=== PATIENT | female | born 1990 | race Caucasian/White ===

== ENCOUNTER 2017-06-08 18:00 | Emergency (ER) | payer OTHER ==
[~2017-06-08 18:00] MED LIST: Iopamidol 370 76% 100 ML VIAL ONE
[2017-06-08 18:31] LABS: #Basophils 0.1 thou/uL (0.0-0.2); #Eosinphils 0.2 thou/uL (0.0-0.7); #Lymphocytes 3.6 thou/uL (1.20-3.40); #Monocytes 0.6 thou/uL (0.11-0.59); #Neutrophils 2.9 thou/uL (1.40-6.50); %Basophils 1.5 % (0.0-1.0); %Lymphocytes 49.1 % (21.0-51.0); %Monocytes 7.4 % (0.0-10.0); %Neutrophils 38.9 % (42.0-75.0); Hemoglobin 13.5 g/dL (12.0-16.0); Mean Corpuscular HGB CONC 35.4 g/dL (32.0-36.0); Mean Corpuscular Hemoglobin 30.8 pg (27.0-31.0); Mean Platelet Volume 10.4 fL (7.4-10.4); Platelet Count 213 thou/uL (130-400); Red Blood Cell (RBC) Count 4.39 mill/uL (4.20-5.40); White Blood Cell (WBC) Count 7.4 thou/uL (4.8-10.8)
[2017-06-08 18:39] LABS: Bilirubin Negative (Negative); Blood, Urine Negative (Negative); Clarity Clear (Clear); Glucose, Urine (Dipstick) Negative (Negative); Leukocyte Negative (Negative); Nitrite Negative (Negative); Protein, Urine (Dipstick) Negative (Neg-Trace); Specific Gravity, Urine 1.015 (1.005-1.030); Urobilinogen 0.2 mg/dL (0.2-1.0); pH, Urine 7.5 (5.0-9.0)
[2017-06-08 18:40] LABS: Pregnancy Test - Urine (BHCG) Negative (Negative); Pregu Control Background? CLEAR/WHITE (CLR/WHITE); Pregu Control Bar Appear? YES (CONTROL BAR); Specific Gravity 1.015 (1.002-1.036)
[2017-06-08 18:49] LABS: ALT (SGPT) 19 U/L (8-55); AST (SGOT) 17 U/L (5-34); Albumin 4.1 g/dL (3.5-5.0); Alkaline Phosphatase 45 U/L (40-150); Anion Gap 14 mmol/L (10-20); BUN (Urea Nitrogen) 10 mg/dL (7.0-18.7); Bilirubin, Total 0.3 mg/dL (0.2-1.2); Calc. Creatinine Clearance 0 mL/min (70-130); Calcium 8.9 mg/dL (7.8-10.44); Carbon Dioxide 24 mmol/L (22-29); Chloride 106 mmol/L (98-107); Estimated GFR-MDRD 90; Globulin 2.4 g/dL (2.4-3.5); Glucose 100 mg/dL (70-105); Lipase 13 U/L (8-78); Potassium 3.6 mmol/L (3.5-5.1); Protein, Total 6.5 g/dL (6.0-8.3); Sodium 140 mmol/L (136-145)
[2017-06-08] MEDS ORDERED: Morphine 10 MG/ML VIAL ONE (19:07)
[2017-06-08] MEDS ORDERED: Ondansetron HCl/PF 4 MG/2 ML Vial ONE (19:07)
--- NOTE | 2017-06-08 19:52 | CT ---
CT ABDOMEN AND PELVIS WITH CONTRASTS: Date: 06/08/17 Multiple axial tomograms obtained through abdomen and pelvis with IV enhancement. HISTORY: Right lower quadrant abdominal pain. FINDINGS: Lung bases are clear. The liver, spleen, and pancreas are unremarkable. The adrenal glands and kidneys are unremarkable. Sm all bowel loops appear normal caliber. Appendix is identified and appears unremarkable. Stool and gas throughout the colon. Urinary bladder is distended and appears unremarkable. Kidneys unremarkable. There is an IUD in the endometrial cavity. Adnexa unremarkable. No adenopathy. IMPRESSION: No acute process identified. POS: [facility]
== END 2017-06-08 20:24 | disposition home or self-care (01) ==
LOC: SCSER 18:00
DX: R10.31 Right lower quadrant pain (principal); J45.909 Unspecified asthma, uncomplicated; F41.9 Anxiety disorder, unspecified
CPT/HCPCS: 74177; 80053; 81003; 81025; 83690; 85025; 96361; 96374; 96375; J2270; J2405

== ENCOUNTER 2018-11-25 06:58 | Outpatient (CLI) | payer OTHER ==
--- NOTE | 2018-11-25 08:35 | ULT ---
OB ULTRASOUND: INDICATIONS: Size and dates. FINDINGS: There is a single viable intrauterine . Gestational age by ultrasound is 18 weeks 6 days. BPD: 19 weeks 2 days. HC: 19 weeks 0 days. AC: 18 weeks 5 days. FL: 18 weeks 4 days. EFW: 253 g (44th percentile). HEART RATE: 144 PLACENTA: Posterior. PRESENTATION: Breech. AMNIOTIC FLUID: Adequate. CERVICAL LENGTH: 4.3 cm. Anatomy visualized included intracranial contents, four-chambered heart, stomach, kidneys, cord inser tion, bladder, spine, lips, nose, extremities, and three-vessel cord. No abnormality identified. IMPRESSION: An 38-twao-2-day gestational age by ultrasound. POS: [facility]
== END 2018-11-25 06:59 | disposition home or self-care (01) ==
LOC: SCSULT 06:58
PROVIDERS: ATTEND Family Medicine
DX: Z34.02 Encounter for supervision of normal first pregnancy, second trimester (principal); Z3A.18 18 weeks gestation of pregnancy
CPT/HCPCS: 76805

== ENCOUNTER 2019-04-16 10:04 | Inpatient (IN) | payer OTHER ==
[2019-04-16] MEDS ORDERED: Bicitra 30 ML UDCUP PO SCH (10:40)
[2019-04-16] MEDS ORDERED: hydrALAZINE 20 MG/ML VIAL SLOW IVP PRN ×2 (10:40→14:15)
[2019-04-16] MEDS ORDERED: CEFAZOLIN 2 GM in Premix Bag 1 BAG IVPB SCH (10:40)
[2019-04-16] MEDS ORDERED: Promethazine HCl 25 MG/ML VIAL IM PRN ×2 (10:40→16:20)
[2019-04-16] MEDS ORDERED: Ondansetron PF 4 MG/2 ML Vial IVP PRN ×3 (10:40→16:20)
[2019-04-16] MEDS: Lactated Ringer's 1,000 ML IV SCH ×3 (11:15→16:20)
[2019-04-16 11:19] VITALS: BMI 37.5
[2019-04-16 11:30] LABS: Hemoglobin 13.1 g/dL (12.0-16.0); Mean Corpuscular HGB CONC 35.1 g/dL (32.0-36.0); Mean Corpuscular Hemoglobin 30.5 pg (27.0-31.0); Mean Platelet Volume 10.5 fL (7.4-10.4); Platelet Count 141 thou/uL (130-400); RBC Distribution Width 12.2 % (11.5-14.5); Red Blood Cell (RBC) Count 4.29 mill/uL (4.20-5.40); White Blood Cell (WBC) Count 9.6 thou/uL (4.8-10.8)
[2019-04-16] MEDS ORDERED: MORPHINE 5 MG/10 ML PF VIAL ONE (11:41)
[2019-04-16] MEDS ORDERED: PHENYLEPHRINE-NS 100 MCG/ML 10 ML SYRINGE ONE (11:42)
[2019-04-16] MEDS ORDERED: ePHEDrine/0.9% NaCl/PF SYRINGE 50 mg/10 ml ONE (11:42)
[2019-04-16] MEDS ORDERED: Oxytocin 10 UNITS/ML VIAL ONE ×2 (11:42→12:41)
[2019-04-16] MEDS ORDERED: Dexamethasone 4 mg/ml Vial ONE (11:42)
[2019-04-16] MEDS ORDERED: Ondansetron PF 4 MG/2 ML Vial ONE (11:42)
[2019-04-16 12:07] LABS: HBSAg Index 0.39 S/CO (0-0.99); Hep B Surf Ag Non-Reactive S/CO (NonReactive)
[2019-04-16 12:18] LABS: Syphilis Antibody Nonreactive (Nonreactive); Syphilis Antibody Index 0.02 S/CO (<1.00 Non-Reactive)
[2019-04-16] MEDS ORDERED: Bicitra 30 ML UDCUP ONE (12:39)
--- NOTE | 2019-04-16 14:06 | OP ---
DATE OF PROCEDURE: 04/16/2019 PREOPERATIVE DIAGNOSIS: Term intrauterine with breech presentation. POSTOPERATIVE DIAGNOSIS: Term intrauterine with breech presentation, status post delivery. PROCEDURE PERFORMED: Primary low transverse section. PUMP ROOM OPERATOR: Jhonny York MD. ANESTHETIC: Spinal anesthetic. COMPLICATIONS: No complications. DESCRIPTION OF PROCEDURE: After adequate spinal anesthetic, the patient was placed in supine position, which was placed under her right flank. A Kulkarni catheter was inserted, and the abdomen was prepped and draped in usual sterile technique. A Pfannenstiel incision was made in the inferior aspect of the abdomen. Subcutaneous tissue opened with sharp dissection. Fascia opened with sharp dissection. Peritoneum opened with sharp and blunt dissection, and large Joaquim O retractor was placed. A bladder flap was incised inferiorly, and a low-transverse incision was made on the uterus. Membranes were ruptured. Clear fluid was encountered, and a viable female was delivered from the rob breech presentation without difficulty. breathed and cried spontaneously. Cord was clamped and cut after approximately 30 seconds. was handed to the care of the Neonatology Team. Cord blood was obtained. The placenta was delivered manually. Ring forceps were placed over the hysterotomy edges, and the hysterotomy was then closed in continuous fashion in 2 layers using 0 Monocryl suture. Hemostasis was adequate. There were no further bleeders. Joaquim O retractor was removed. Again, inspecting incision with no bleeding. The peritoneal edges were then closed in continuous fashion using 2-0 Vicryl suture, and the fascia was closed in continuous fashion using 0 Vicryl. Sponge and instrument counts were correct. Subcutaneous tissue was then closed in continuous running fashion with 2-0 plain, and the skin was closed in subcuticular fashion with 4-0 Monocryl. Sponge and instrument counts were again correct. There were no complications. QBL, 311 mL. Baby is a viable female infant, weight 7 pounds 4 ounces, Apgars 8 at one minute, 9 at five minutes, to go in level-1 nursery without complications. Job ID: [id number]
[2019-04-16] MEDS ORDERED: Acetaminophen 325 MG TAB PO PRN (14:15)
[2019-04-16] MEDS ORDERED: Acetaminophen/Codeine 30-300mg Tablet PO PRN (14:15)
[2019-04-16] MEDS ORDERED: Lanolin Ointment 7 GM TUBE TOP PRN (14:15)
[2019-04-16] MEDS ORDERED: Bisacodyl 10 MG SUPP PR PRN (14:15)
[2019-04-16] MEDS ORDERED: HYDROcodone/Acetaminophen 5/325 mg Tablet PO PRN ×2 (14:15→23:46)
[2019-04-16] MEDS ORDERED: Hydrocerin (Eucerin) Cream 120 gm Jar TOP PRN (16:20)
[2019-04-16] MEDS ORDERED: NO PO,IM,IV OR SC NARCOTICS FOR 12HR EXCEPT BY ANESTHESIA PO SCH (16:20)
[2019-04-16] MEDS ORDERED: Naloxone HCl 0.4 mg/ml Vial IVP PRN (16:20)
[2019-04-16] MEDS ORDERED: Ketorolac Tromethamine 30 MG/ML VIAL IVP PRN (16:20)
[2019-04-16] MEDS ORDERED: Promethazine HCl 25 MG SUPP PR PRN (16:20)
[2019-04-16] MEDS ORDERED: Naloxone HCl 0.4 mg/ml Vial IV PRN ×2 (16:20)
[2019-04-16] MEDS ORDERED: diphenhydrAMINE 50 MG/ML VIAL IVP PRN (16:20)
[2019-04-16] MEDS: diphenhydrAMINE 25 MG CAP PO PRN (18:37)
[2019-04-16] MEDS: Docusate Calcium (SURFAK) 240 MG CAP PO SCH (22:42)
[2019-04-16] MEDS: Simethicone Chewable 80 MG TAB PO PRN (22:42)
[2019-04-16] MEDS: Ferrous Sulfate 325 MG TAB PO SCH (22:43)
[2019-04-17] MEDS: Ibuprofen 800 MG TAB PO SCH ×3 (05:50→22:01)
[2019-04-17] MEDS: Acetaminophen/Codeine 30-300mg Tablet PO PRN ×4 (05:56→18:50)
[2019-04-17 08:10] LABS: Hemoglobin 12.2 g/dL (12.0-16.0); Mean Corpuscular HGB CONC 34.6 g/dL (32.0-36.0); Mean Corpuscular Hemoglobin 30.5 pg (27.0-31.0); Mean Corpuscular Volume 88.1 fL (78.0-98.0); Mean Platelet Volume 10.4 fL (7.4-10.4); Platelet Count 126 thou/uL (130-400); RBC Distribution Width 12.2 % (11.5-14.5); Red Blood Cell (RBC) Count 3.99 mill/uL (4.20-5.40); White Blood Cell (WBC) Count 12.7 thou/uL (4.8-10.8)
[2019-04-17] MEDS: diphenhydrAMINE 25 MG CAP PO PRN (09:38)
[2019-04-17] MEDS: Prenatal Vitamin 1 TAB PO SCH (09:38)
[2019-04-17] MEDS: Docusate Calcium (SURFAK) 240 MG CAP PO SCH ×2 (09:38→22:01)
[2019-04-17] MEDS: Simethicone Chewable 80 MG TAB PO PRN ×2 (09:47→20:53)
[2019-04-17] MEDS: Ferrous Sulfate 325 MG TAB PO SCH ×2 (10:42→22:38)
[2019-04-18] MEDS: Acetaminophen/Codeine 30-300mg Tablet PO PRN ×5 (00:54→21:14)
[2019-04-18] MEDS: Ibuprofen 800 MG TAB PO SCH ×3 (04:05→20:18)
[2019-04-18] MEDS: Simethicone Chewable 80 MG TAB PO PRN ×2 (09:05→20:17)
[2019-04-18] MEDS: Prenatal Vitamin 1 TAB PO SCH (09:05)
[2019-04-18] MEDS: Docusate Calcium (SURFAK) 240 MG CAP PO SCH ×2 (09:06→20:17)
[2019-04-18] MEDS: Ferrous Sulfate 325 MG TAB PO SCH ×2 (09:06→22:49)
[2019-04-18 23:06] VITALS: TEMP 97.6
[2019-04-19] MEDS: Acetaminophen/Codeine 30-300mg Tablet PO PRN ×3 (01:32→11:56)
[2019-04-19] MEDS: Ibuprofen 800 MG TAB PO SCH ×2 (04:57→11:56)
[2019-04-19] MEDS: Prenatal Vitamin 1 TAB PO SCH (07:30)
[2019-04-19] MEDS: Docusate Calcium (SURFAK) 240 MG CAP PO SCH (07:30)
[2019-04-19 08:19] VITALS: BP 127/70
[2019-04-19] MEDS: Ferrous Sulfate 325 MG TAB PO SCH (08:59)
[2019-04-19] MEDS: Simethicone Chewable 80 MG TAB PO PRN (11:56)
== END 2019-04-19 12:39 | disposition home or self-care (01) | DRG 788 ==
LOC: L&D-LIB 10:04 → L&D 11:50 → EDSTATUS 12:00 → 3SW 15:19
PROVIDERS: ADMIT Family Medicine; ATTEND Family Medicine
PROC: 10D00Z1 Extraction of Products of Conception, Low, Open Approach (ICD-10-PCS; principal; 2019-04-16)
PROC: 6A550ZT Pheresis of Cord Blood Stem Cells, Single (ICD-10-PCS; 2019-04-16)
DX: O32.1XX0 Maternal care for breech presentation, not applicable or unspecified (principal); Z3A.39 39 weeks gestation of pregnancy; Z37.0 Single live birth
CPT/HCPCS: 36415; 51702; 76815; 85027; 86780; 86850; 86900; 86901; 87340; J0690; J1100; J2274; J2405; J2590; Q0163